=== PATIENT | female | born 1975 ===

== ENCOUNTER 2017-06-09 10:28 | Emergency (ER) | payer SELFPAY ==
[2017-06-09 12:37] VITALS: BP 129/91
--- NOTE | 2017-06-09 13:16 | UC ---
Troy Schmidt Gabriel, scribed for Thu Redding MD on 06/09/17 at 1311 . FLU HPI - HPI Summary HPI Summary: Hospital conference planner services used as pt primary language Tajik. present throughout This patient is a 41 year old F presenting to [facility] [place] accompanied by her with a chief complaint of flu like illness since yesterday afternoon. The patient rates the pain 7/10 in severity. Patient reports sore throat, myalgia, CP when breathing, ear pain, and nausea. Patient denies fever, cough, vomiting, and diarrhea. Pt states there is no chance of and she hasnt taken anything for pain. She has only drunk fluids today. NDKA. LNMP jun 04. The patient speaks very little Turkmen so a prosthetic lab technician on the IPad was used. Patients medication reviewed during this visit. - History of Current Complaint Chief Complaint: UCGeneralIllness Stated Complaint: FLU LIKE SYMPS Time Seen by Provider: 06/09/17 12:44 Hx Obtained From: Patient, Call Out Clerk Hx Last Menstrual Period: 06/04/17 Onset/Duration: Lasting Days - 1, Still Present Severity Currently: Moderate Severity Initially: Moderate Pain Intensity: 7 Pain Scale Used: 0-10 Numeric Associated Signs & Symptoms: Positive: Myalgia, Sore Throat. Negative: Fever, Cough, Vomiting, Diarrhea - Allergy/Home Medications Allergies/Adverse Reactions: Allergies Allergy/AdvReac Type Severity Reaction Status Date / Time No Known Allergies Allergy Verified 06/09/17 12:15 PMH/Surg Hx/FS Hx/Imm Hx Other History Of: Negative For: Hepatitis B, Hepatitis C - Surgical History Surgical History: None - Family History Known Family History: Positive: Diabetes Negative: Cardiac Disease, Hypertension, Renal Disease, Respiratory Disease, Seizure Disorder, Blood Disorder - Social History Occupation: Employed Full-time - house keeping Lives: With Family Alcohol Use: Occasionally Substance Use Type: None Smoking Status (MU): Never Smoked Tobacco Review of Systems ENT: Sore Throat, Ear Ache Cardiovascular: Chest Pain Gastrointestinal: Nausea Musculoskeletal: Myalgia All Other Systems Reviewed And Are Negative: Yes Physical Exam Triage Information Reviewed: Yes Appearance: Well-Appearing, No Pain Distress, Well-Nourished Vital Signs: Initial Vital Signs Temp 98.9 F 06/09/17 12:20 Pulse 99 06/09/17 12:20 Resp 20 06/09/17 12:20 BP 129/91 06/09/17 12:20 Pulse Ox 99 06/09/17 12:20 Vital Signs Reviewed: Yes Eye Exam: Normal Eyes: Positive: Conjunctiva Clear ENT: Positive: TMs normal, Other - TM x 2 clear turbinates inflammed and boggy + PND no erythema, no exudate Dental Exam: Normal Neck exam: Normal Neck: Positive: Supple, Nontender, No Lymphadenopathy Respiratory: Positive: Chest non-tender, Lungs clear, Normal breath sounds, No respiratory distress, No accessory muscle use, Other: - cough Cardiovascular Exam: Normal Cardiovascular: Positive: RRR, No Murmur Abdominal Exam: Normal Abdomen Description: Positive: Nontender, No Organomegaly, Soft Musculoskeletal Exam: Normal Neurological Exam: Normal Psychological Exam: Normal Skin Exam: Normal Flu Course/Dx - Course Course Of Treatment: BP noted and advised to follow up with PCP. Pt with myalgia, cough congestion x 24 hours. + influenza exposure. will txt tamiflu. secreion precaution. motrin/apap - Differential Dx/Diagnosis Provider Diagnoses: viral syndrome. influenza exposure. Elevated blood pressure without a previous diagnoses of hypertension Discharge - Discharge Plan Condition: Stable Disposition: HOME Prescriptions: Oseltamivir Phosphate [Tamiflu] 75 mg PO BID #10 capsule Patient Education Materials: Viral Syndrome (ED) Referrals: [facility]IAN REFERRAL [Outside] No Primary Care Phys,NOPCP [Primary Care Provider] - Additional Instructions: Your blood pressure was elevated during today's visit. Please follow up with your primary care provider in 1-2 weeks. - The doctor that evaluated you today is concerned you have the flu. You have been prescribed Tamiflu - medication for treatment of flu. Your symptoms may last up to 1 week. - Stay well hydrated. Drink plenty of non-alcoholic, non-caffinated beverages. -- These infections are spread by secretions - do NOT share eating or drinking utensils - clean items you share with other people such as cell phones, computer mouse, TV remote, computer tablets, etc. After you have taken Tamiflu for 3 days, change your toothbrush and your pillowcase. - get plenty of restful sleep - humidify the air in the room where you sleep - boil water, run a hot steam shower, vaporizer, cups of water by heat register - okay to take over the counter decongestant and cough medication - contact return here, or go to the emergency department with questions or concerns The documentation as recorded by the Troy mckeon Gabriel accurately reflects the service I personally performed and the decisions made by me, Thu Redding MD.
[2017-06-09] MEDS ORDERED: Ibuprofen TAB* 600 MG PO ONE (13:17)
== END 2017-06-09 14:05 | disposition home or self-care (01) ==
LOC: UCEAST 10:28
DX: B34.9 Viral infection, unspecified (principal); Z20.828 Contact with and (suspected) exposure to other viral communicable diseases; R03.0 Elevated blood-pressure reading, without diagnosis of hypertension
CPT/HCPCS: 87502; 87651; 99202; A9270-GY; G0463